=== PATIENT | female | born 1950 | race African-American/Black ===

== ENCOUNTER 2018-06-23 03:55 | Emergency (ER) | payer MEDICARE, OTHER ==
[~2018-06-23] VITALS: Ht 157.5 cm; Wt 86.6 kg
[2018-06-23] MEDS ORDERED: ACETAMINOP160 MG/55 ORAL (04:08)
[2018-06-23] MEDS ORDERED: Morphine Sulfate 4mg/ml Inj (IV USE ONLY) ONE (04:08)
[2018-06-23] MEDS ORDERED: BISACODYL5 MG RECTAL (04:09)
[2018-06-23] MEDS ORDERED: FAMOTIDINE20 MG ORAL (04:09)
--- NOTE | 2018-06-23 04:09 | Emergency Room Report ---
History of Present Illness General Chief Complaint: Upper Respiratory Illness Source: Patient Present Illness HPI Patient present with complaints of pain to both feet reports that she has a sharp shooting type sensation Denies any chest pain she also complained of a mild cough Denies any vomiting or diarrhea Patient has had previous tracheostomy And also had noted mouth discomfort on the triage from the nursing facility here the patient denies any discomfort denies any neck pain or photophobia Allergies: Coded Allergies: CEFTRIAXONE (Verified Allergy, Mild, 06/23/18) Patient History Past Medical History: see triage record Pertinent Family History: none Reviewed Nursing Documentation: PMH: Agreed; PSxH: Agreed Nursing Documentation-PMH Hx Hypertension: Yes Hx COPD: Yes History Of Psychiatric Problem: Yes Hx Cerebrovascular Accident: Yes Review of Systems All Other Systems: negative except mentioned in HPI Physical Exam Vital Signs Date Time Temp Pulse Resp B/P (MAP) Pulse Ox O2 Delivery O2 Flow Rate FiO2 06/23/18 03:56 98.2 78 16 118/78 96 Room Air Sp02 EP Interpretation: reviewed, normal General Appearance: no apparent distress Head: normocephalic, atraumatic Eyes: bilateral eye PERRL, bilateral eye EOMI ENT: normal pharynx Neck: supple, other - Evidence of previous tracheostomy Respiratory: lungs clear, no respiratory distress, no retraction Cardiovascular #1: regular rate, rhythm Gastrointestinal: non tender, soft Musculoskeletal: other - Patient has previous CVA contracted state left foot is extended, no obvious contusions or bruising Neurologic: alert, oriented x3 Skin: no rash Lymphatic: no adenopathy Medical Decision Making Diagnostic Impression: Primary Impression: Cough Additional Impression: Foot pain ER Course Patient is awake and alert is able to provide some input Patient had previous tracheostomy and has difficult time speaking at times X-ray imaging does not show any obvious acute pathology Foot x-ray also does not show any acute pathology patient was provided with pain medication has rested comfortably hemodynamically stable did not feel there was any other emergent presentation for further investigation and patient stable for close follow-up EKG Diagnostic Results Rate: normal Rhythm: NSR ST Segments: no acute changes Rhythm Strip Diag. Results EP Interpretation: yes Rate: 66 Rhythm: NSR, no PVC's, no ectopy Chest X-Ray Diagnostic Results Chest X-Ray Diagnostic Results : Chest X-Ray Ordered: Yes # of Views/Limited/Complete: 1 View Indication: Shortness of Breath EP Interpretation: Yes Interpretation: no consolidation, no effusion, no pneumothorax Impression: No acute disease Electronically Signed by: Arron Villalobos DO Other X-Ray Diagnostic Results Other X-Ray Diagnostic Results : X-Ray ordered: Right foot # of Views/Limited Vs Complete: 2 View Indication: Pain EP Interpretation: Yes Interpretation: no dislocation, no soft tissue swelling, no fractures Impression: No acute disease - Significant osteopenia Electronically Signed by: Arron Villalobos DO Last Vital Signs Date Time Temp Pulse Resp B/P (MAP) Pulse Ox O2 Delivery O2 Flow Rate FiO2 06/23/18 03:56 98.2 78 16 118/78 96 Room Air Status: improved Disposition: XFER SNF Condition: Improved Additional Instructions: Patient is provided with the discharge instructions notified to follow up with primary doctor in the next 2-3 days otherwise return to the er with any worsening symptoms. Please note that this report is being documented using DRAGON technology. This can lead to erroneous entry secondary to incorrect interpretation by the dictating instrument. Arron Villalobos DO Jun 23, 2018 04:09
[2018-06-23] MEDS ORDERED: FERROUS SULFAT325 MG ORAL (04:10)
[2018-06-23] MEDS ORDERED: GERI-KOT8.6 MG PO (04:10)
--- NOTE | 2018-06-23 04:10 | NUR ---
ED Nurse Note: RECIEVED PT BIBA FROM SNF WITH C/O MOUTH PAIN, PT IS AWAKE, ALERT AND ORIENTED X 4, PT STATES SHE HAS THROAT PAIN AND COUGH, PT DENEIS CP, NO SOB OR LABORED BREATHING, NO OTHER DISTRESS OR DISCOMFORTS.
[2018-06-23] MEDS ORDERED: IPRATROPIU0.2 MG/1 M HHN (04:11)
[2018-06-23] MEDS ORDERED: MULTIVITAMINS1 EAC2 ORAL (04:11)
[2018-06-23] MEDS ORDERED: MILK OF MA400 MG/51 ORAL (04:11)
[2018-06-23] MEDS ORDERED: ACETAMINOPHEN-1 EAC1 ORAL (04:12)
[2018-06-23] MEDS ORDERED: MIRTAZAPINE15 MG ORAL (04:12)
[2018-06-23] MEDS ORDERED: Morphine Sulfate 2mg/ml Inj(IV/IM USE ONLY) IM ONE (04:15)
--- NOTE | 2018-06-23 04:43 | NUR ---
Spoke with Elvira at [facility]- aware of patient going back by ambulance.
[2018-06-23 04:45] VITALS: BP 124/71
--- NOTE | 2018-06-23 10:46 | Diagnostic Imaging Report ---
Indication: Shortness of breath Technique: One view of the chest Comparison: none Findings: Heart is borderline enlarged. There is questionable irregular 1 cm nodule in the right midlung periphery. The lungs and pleural spaces are clear otherwise. There is ventriculoperitoneal shunt tubing incidentally noted. Impression: Questionable right midlung nodule, likely an area of scarring if real but further follow-up radiographs and/or CT recommended Borderline cardiomegaly Ventriculoperitoneal shunt incidentally noted Findings and recommendations discussed by phone with Dr. Schumacher at the time of interpretation
--- NOTE | 2018-06-23 11:21 | Diagnostic Imaging Report ---
Indication: Right foot pain Technique: 3 views right foot Comparison: none Findings: Unusual flexion deformities of the toes limits evaluation. There is also hallux valgus and metatarsus adductus. Bones are profoundly osteoporotic. No definite acute fractures. No dislocations. There are degenerative changes of the midfoot. There is a large calcaneal spur. Chronic appearing periosteal reaction is seen along the shafts of the third and fourth metatarsals Impression: Findings as noted. No definite acute bony trauma
== END 2018-06-23 04:45 ==
LOC: EDBD 03:55 → EMR 04:06
DX: R05 Cough (principal); J44.9 Chronic obstructive pulmonary disease, unspecified; I10 Essential (primary) hypertension; Z88.1 Allergy status to other antibiotic agents
CPT/HCPCS: 71045; 73620; 96372; 99284; J2270